=== PATIENT | female | born 1965 | race Caucasian/White ===

== ENCOUNTER 2022-12-10 08:22 | Day surgery (SDC) | payer BC ==
[2022-12-05 11:57] LABS: Absolute Lymphocytes (CBC) 1.8 K/uL (0.7-4.9); Hematocrit 38.6 % (36.0-45.0); Lymphocytes % 24.1 % (15.3-44.8); MCV 82.4 fL (80-100); MPV 8.2 fL (7.6-11.3); RBC Red Blood Cell Count 4.69 M/uL (3.86-4.86)
[2022-12-05 11:59] LABS: Specific Gravity 1.007 (1.005-1.030); Urine Bilirubin NEGATIVE (Negative); Urine Blood Negative (Negative); Urine Clarity Clear (Clear); Urine Color Colorless (Yellow); Urine Glucose NEGATIVE (Negative); Urine Protein NEGATIVE (Negative); Urine Urobilinogen Normal (Normal); Urine pH 6.5 (5.0-7.0)
[2022-12-10] MEDS ORDERED: SCOPOLAMINE HYDROBROMIDE PATCH TD ONE (09:00)
[2022-12-10] MEDS ORDERED: Ringers Lactate 1,000 ML IV ONE (09:00)
[2022-12-10] MEDS ORDERED: FENTANYL CITR 100 MCG/2 ML ONE ×2 (09:02→12:17)
[2022-12-10] MEDS ORDERED: ROCURONIUM 50 MG/5 ML VIAL IV ONE ×2 (09:02→12:17)
[2022-12-10] MEDS ORDERED: propofoL 200 MG/20 ML VIAL IV ONE (09:02)
[2022-12-10] MEDS ORDERED: ONDANSETRON 4 MG/2 ML VIAL ONE (09:03)
[2022-12-10] MEDS ORDERED: LIDOCAINE 2% MPF 5 ML VIAL ONE (09:03)
[2022-12-10] MEDS: CEFAZOLIN SODIUM 2 GM/VIAL ONE ×2 (09:49→10:53)
[2022-12-10] MEDS: BUPIVACAINE 0.25% PF 30 ML VIAL ONE ×3 (09:50→11:42)
[2022-12-10] MEDS ORDERED: MIDAZOLAM HCL 2 MG/2 ML INJ ONE (10:25)
[2022-12-10] MEDS ORDERED: dexAMETHasone 4 MG/ML VIAL ONE (11:40)
[2022-12-10] MEDS ORDERED: KETOROLAC 30 MG/ML INJ ONE (13:06)
[2022-12-10] MEDS ORDERED: NEOSTIGMINE 1 MG/ML -10 ML VIAL ONE (13:15)
[2022-12-10] MEDS ORDERED: GLYCOPYRROLATE 0.2 MG/ML SYR ONE (13:15)
[2022-12-10] MEDS ORDERED: MEPERIDINE HCL 25 MG/ML SYR IM PRN (14:14)
[2022-12-10] MEDS ORDERED: IBUPROFEN 200 MG TAB PO PRN (14:14)
[2022-12-10] MEDS ORDERED: PROMETHAZINE INJ 25 MG/ML AMP IV PRN (14:14)
[2022-12-10] MEDS ORDERED: HYDROCODONE/APAP 5/325 MG TAB PO PRN (14:14)
[2022-12-10 16:04] VITALS: BP 113/59; TEMP 96.9; O2SAT 94
--- NOTE | 2022-12-10 20:29 | OP ---
Date of Procedure: 12/10/2022 Surgeon: Juany Galloway MD Tape Cutter: Jessica Darling. Preoperative Diagnoses: Recurrent cervical dysplasia (low-grade squamous intraepithelial lesion a wi th negative colposcopy and endocervical curettage. Most recently, she had a second abnormal Pap, the prior abnormality was 2 years ago with positive human papilloma virus) and history of breast cancer, patient on Arimidex. Postoperative Diagnoses: Recurrent cervical dysplasia (low-grade squamous intraepithelial lesion a w ith negative colposcopy and endocervical curettage. Most recently, she had a second abnormal Pap, th e prior abnormality was 2 years ago with positive human papilloma virus) and history of breast cancer , patient on Arimidex. Procedures Performed: Total laparoscopic hysterectomy and bilateral salpingo-oophorectomy. Anesthesia: General endotracheal. Estimated Blood Loss: 25. Specimens: Uterus and bilateral tubes and ovaries. Complications: None. Drains: None. Condition: Stable. Indications: The patient is a 57-year-old referred to me by Dr. Yvrose Egan for an abnormal Pap 2 yea rs ago. She had a low-grade STEPHANIE with positive HPV. She was tested with colposcopy and ECC, which we re both negative and had normal Pap in between so discharged back to her primary care provider who re peated a Pap according to guidelines this year and found a low-grade STEPHANIE Pap again, although HPV was negative. Due to past history of positive HPV, she underwent a colposcopy and the ECC with completel y unremarkable pathologies. We discussed about all the options including ongoing surveillance with P ap smears, likely with us instead of her primary care and if there is any positive HPV or progression of dysplasia, that we could do another procedure. The alternative was to have the cervix and uterus removed along with the tubes and ovaries given her history of breast cancer, which would be benefici al. Endometrial hyperplasia risk is extremely small with Arimidex, although possible on SERM. All t hese were reviewed with the patient. Ultrasound was done and EMB was done, all unremarkable. Her en dometrial stripe was 3.4 mm. Biopsy negative. The patient considered her options and wanted to proc eed with definitive treatment with removal of the uterus and bilateral salpingo-oophorectomy. So she was consented and brought to the OR. Procedure In Detail: After she was taken back to the OR, she was placed in supine fashion on the ope rating table. Ancef was given. SCDs were placed. Time-out was done. After general anesthesia was given, she was repositioned in a dorsal lithotomy position using Andi stirrups. Abdomen was prepped with ChloraPrep and vulva, vagina, and perineum with Betadine and draped in a sterile fashion. Speculum was placed to expose the cervix. Anterior lip grasped with 2 Allis clamps, dilated to 16-Fr ench. Large cup VCare was attempted to be introduced. There was a laceration at the introitus, medi al to the labia minor on the right side as the cup could not fit inside due to vaginal canal stenosis . We removed this and placed a medium cup uterine manipulator into the uterus and this was fixed in place without any problems. Palma was placed to drain the bladder and attached to retrograde filling and this area was draped. An infraumbilical incision was made with the scalpel, after 0.25% Marcaine was injected at the skin s ite. Then fascia was identified, cut with the knife and then the peritoneum entered sharply and tagg ed the edges with 0 Vicryl sutures on both sides. [place] was placed in the abdominal cavity and afte r adequate insufflation, site of entry was checked and was unremarkable. Upper abdominal surface was unremarkable. There were adhesions of the omentum to the anterior abdominal wall in the midline and lower midline from her prior C-sections and so this was taken down. After placing the other two 5 p orts, 1 on the right and the other on the left, the fascia and skin were injected at all places with 0.25% Marcaine 5 cc. A suprapubic incision was made 10 mm and a 10 port was placed under direct visi on. The LigaSure was used to take down the omental adhesions. Hysterectomy: The sigmoid adhesions to the left lower quadrant and the left tube were taken down wit h the help of sharp dissection using the scissors. Then the root of the IP ligament was exposed. Th e lateral peritoneum parallel to the IP was opened up all the way from the broad ligament to the leve l of the attachment of the ovary medially. The ureter was identified from the pelvic brim to the ure teric tunnel and there was no anatomical distortion medially. The broad ligament was then incised cl ose to the IP ligament. Once this was isolated, then LigaSure was used to take down this pedicle. T hen, mesosalpinx peritoneum was taken down. The round ligament was taken down and anterior and poste rior broad ligaments were taken down to the level of the vessels here. The peritoneal flaps were ope atul anteriorly and posteriorly and posteriorly opened to expose the back of the VCare cup and anterio rly to raise the bladder flap. The bladder was dissected inferiorly. There were some adhesions of t he bladder here due to her prior most likely. Vessels were identified, cauterized and cut and went on the opposite side. The peritoneum was opened lateral to the IP, parallel to it, then medially the broad ligament was inc ised all the way and opened from the base to the round ligament. Then, the isolated IP ligament was taken down with the help of the LigaSure. The round ligament was taken down and then anterior broad ligament connected to finish the bladder flap. The bladder was dissected inferiorly from the anterio r vaginal wall by holding it up and retracting and going to open the vesicovaginal space gently with push spread technique making sure all the adhesions were taken down. Posterior peritoneum was connec tad to complete the exposure of the VCare cup in the posterior aspect. Vessels were exposed, cauteri zed and cut with the help of the bipolar and LigaSure. Cardinal ligaments were also taken down with the help of the same device. Circumferential colpotomy was performed with a monopolar hook blade and the specimen pulled out throu gh the vagina with tubes and ovaries attached. A peritoneal inclusion cyst was removed. Vaginal cuff closure: After thorough irrigation and suction, there was excellent hemostasis and the vaginal cuff was closed with the help of 0 Vicryl sutures, 2 simple sutures at both ends and 3 figure [id number] in the middle. There was excellent apposition and support as I placed the [id number] on the lateral aspects through the uterosacral ligament, reattaching it to the anterior and posteri or vaginal wall with good connective tissue support as well included in these bites. Point C was at least -6. Thorough irrigation and suction were performed. There was no evidence of mechanical, electrical, or thermal injury to the ureters on both sides. The pedicles were all hemostatic. All the trocars were removed under direct vision. The skin was injected with Marcaine again. Fascia at the umbilicus wa s closed with tag 0 Vicryl sutures tied to each other and simple 0 Vicryl stitch on the fascia at the suprapubic site. All skin incisions were closed with the help of 5-0 Monocryl in a continuous runni ng fashion. The vaginal sponge and the Palma were removed. Instrument, needle, and sponge counts we re correct at the end of the case. The patient tolerated procedure well. She was recovered from ane sthesia and taken to PACU in stable condition. The vaginal laceration was not bleeding at the end, i t was slightly over 1 cm, very superficial and only in the vaginal epithelium. Findings to be discussed with her family. She will follow up in 1 week for pathology results and [facility] followup. Her sister is accompanying her today. EBL minimal. SK/MODL Voice ID: [id number] Report ID: [id number]
== END 2022-12-10 15:56 | disposition home or self-care (01) ==
LOC: OR 08:22
PROVIDERS: ATTEND Obstetrics & Gynecology
PROC: 0UT74ZZ Resection of Bilateral Fallopian Tubes, Percutaneous Endoscopic Approach (ICD-10-PCS; 2022-12-10)
PROC: 0UT24ZZ Resection of Bilateral Ovaries, Percutaneous Endoscopic Approach (ICD-10-PCS; 2022-12-10)
PROC: 0UT94ZZ Resection of Uterus, Percutaneous Endoscopic Approach (ICD-10-PCS; principal; 2022-12-10 10:00)
DX: R87.612 Low grade squamous intraepithelial lesion on cytologic smear of cervix (LGSIL) (principal); I10 Essential (primary) hypertension; E78.00 Pure hypercholesterolemia, unspecified; R89.6 Abnormal cytological findings in specimens from other organs, systems and tissues; D25.9 Leiomyoma of uterus, unspecified
CPT/HCPCS: 58571; 85025; 36415; 86900; 86850; 86901; 88307; 81003; J2704; J1100; J2710; J2001; J2250; J3010 ×2; J2405; J7120; 88311